=== PATIENT | female | born 1995 | race Caucasian/White ===

== ENCOUNTER 2023-01-10 07:00 | Inpatient (IN) | payer MEDICAID ==
[2023-01-10] MEDS ORDERED: Nalbuphine 10 MG/0.5 ML Syringe IVPUSH PRN (07:04)
[2023-01-10] MEDS ORDERED: Sodium Chloride 0.9% 10 ML Syringe FLUSH PRN (07:04)
[2023-01-10] MEDS ORDERED: Ondansetron 4 MG/2 ML SDV IVPUSH PRN (07:04)
[2023-01-10] MEDS ORDERED: Lactated Ringers 1,000 ML IV SCH (07:15)
[2023-01-10] MEDS ORDERED: Oxytocin/Lactated Ringers 10 UNIT/1,000 ML BAG IV SCH (07:15)
[2023-01-10] MEDS ORDERED: Sodium Chloride 0.9% 10 ML Syringe FLUSH SCH (09:00)
[2023-01-10 09:09] LABS: HEMATOCRIT 35.3 % (34.1-44.9); HEMOGLOBIN 11.9 gm/dl (11.2-15.7); MEAN CORPUSCULAR HEMOGLOBIN 31.7 pg (25.6-32.2); MEAN CORPUSCULAR HGB CONC 33.7 g/dl (32.2-35.5); MEAN CORPUSCULAR VOLUME 94.1 fl (79.4-94.8); PLATELET COUNT,PLT 107 K/mm3 (182-369); RED BLOOD CELL COUNT 3.75 M/mm3 (3.98-5.22); WHITE BLOOD CELL COUNT,WBC 7.25 K/mm3 (3.98-10.04)
[2023-01-10] MEDS ORDERED: ePHEDrine 50 MG/ML SDV IVPUSH PRN (11:21)
[2023-01-10] MEDS ORDERED: Bupivacaine/fentaNYL/NS 100 ML Bag EPIDUR PRN (11:21)
[2023-01-10] MEDS ORDERED: diphenhydrAMINE 50 MG/ML SDV IVPUSH PRN (11:21)
[2023-01-10] MEDS ORDERED: fentaNYL 100 MCG/2 ML SDV EPIDUR PRN (11:21)
[2023-01-10] MEDS ORDERED: Docusate Sodium 100 MG Cap PO PRN (13:53)
[2023-01-10] MEDS ORDERED: Benzocaine/Menthol 20%-0.5% Spray 78 GM Cannister TOP PRN (13:53)
[2023-01-10] MEDS ORDERED: Witch Hazel Medicated Pads 40/Jar TOP PRN (13:53)
[2023-01-10] MEDS ORDERED: Acetaminophen 325 MG Tab PO PRN (13:53)
[2023-01-10] MEDS: Ibuprofen 600 MG Tab PO PRN (21:21)
[2023-01-11] MEDS: Ibuprofen 600 MG Tab PO PRN ×2 (06:15→13:21)
== END 2023-01-11 13:35 | disposition home or self-care (01) | DRG 807 ==
LOC: JD.OB 07:00 → OBSVTOIN 12:27 → JD.OB 22:57
PROVIDERS: ADMIT Obstetrics & Gynecology; ATTEND Obstetrics & Gynecology
PROC: 10E0XZZ Delivery of Products of Conception, External Approach (ICD-10-PCS; principal; 2023-01-10)
PROC: 10907ZC Drainage of Amniotic Fluid, Therapeutic from Products of Conception, Via Natural or Artificial Opening (ICD-10-PCS; 2023-01-10)
PROC: 3E033VJ Introduction of Other Hormone into Peripheral Vein, Percutaneous Approach (ICD-10-PCS; 2023-01-10)
PROC: 3E0R3BZ Introduction of Anesthetic Agent into Spinal Canal, Percutaneous Approach (ICD-10-PCS; 2023-01-10)
PROC: 00HU33Z Insertion of Infusion Device into Spinal Canal, Percutaneous Approach (ICD-10-PCS; 2023-01-10)
DX: O80 Encounter for full-term uncomplicated delivery (principal); Z37.0 Single live birth; Z3A.39 39 weeks gestation of pregnancy
CPT/HCPCS: 36415; 51701; 59025; 59409; 85027; 86592; 86850; 86900; 86901; A9270-GY; J2590; J7120